=== PATIENT | male | born 1945 | race Caucasian/White ===

== ENCOUNTER 2018-03-28 19:48 | Emergency (ER) | payer MEDICARE ==
[~2018-03-28] VITALS: Ht 172.7 cm; Wt 88.0 kg
[2018-03-28 19:54] VITALS: BP 116/75
== END 2018-03-28 20:37 | disposition left against medical advice (07) ==
LOC: ER 20:21
DX: R10.9 Unspecified abdominal pain (principal); Z53.21 Procedure and treatment not carried out due to patient leaving prior to being seen by health care provider